=== PATIENT | male | born 1950 | race Caucasian/White ===

== ENCOUNTER → 2018-08-18 | Outpatient (CLI) | payer MEDICARE, OTHER | END | disposition home or self-care (01) | LOC: CFH 13:37 | PROVIDERS: ATTEND Internal Medicine Cardiovascular Disease | DX: I35.1 Nonrheumatic aortic (valve) insufficiency (principal); I25.10 Atherosclerotic heart disease of native coronary artery without angina pectoris; I25.2 Old myocardial infarction; I10 Essential (primary) hypertension; E78.5 Hyperlipidemia, unspecified; Z85.46 Personal history of malignant neoplasm of prostate; Z87.891 Personal history of nicotine dependence | CPT/HCPCS: 93306 ==

== ENCOUNTER → 2018-08-24 | Outpatient (CLI) | payer MEDICARE, OTHER | END | disposition home or self-care (01) | LOC: CARD 15:17 | PROVIDERS: ATTEND Family Medicine | DX: R06.02 Shortness of breath (principal) | CPT/HCPCS: 94060; 94726; 94729 ==

== ENCOUNTER 2018-09-18 09:38 | Day surgery (SDC) | payer MEDICARE ==
[~2018-09-18] VITALS: Ht 175.3 cm; Wt 98.9 kg
[~2018-09-18 09:38] MED LIST: ACETAMINOPHEN 325 MG TABLET PO PRN; ATOR40TA78 PO; CLOP75TA PO; KETOROLAC 30 MG/1 ML IV PRN; LABETALOL 5MG/ML, 20ML IV PRN; NITR0.4T SL; hydrALAzine 20 MG/ML, 1ML IV PRN
[2018-09-18 09:50] VITALS: BP 156/92
[2018-09-18] MEDS ORDERED: PROPOFOL 10 MG/ML, 20ML ONE (10:09)
== END 2018-09-18 11:50 | disposition home or self-care (01) ==
LOC: OUT 09:38
PROVIDERS: ATTEND Surgery
DX: K91.30 Postprocedural intestinal obstruction, unspecified as to partial versus complete (principal); K62.4 Stenosis of anus and rectum; K51.90 Ulcerative colitis, unspecified, without complications; I10 Essential (primary) hypertension; E78.5 Hyperlipidemia, unspecified; I25.10 Atherosclerotic heart disease of native coronary artery without angina pectoris; Z98.0 Intestinal bypass and anastomosis status; Z98.890 Other specified postprocedural states; Z85.46 Personal history of malignant neoplasm of prostate; Z91.018 Allergy to other foods; Z91.013 Allergy to seafood; Z95.5 Presence of coronary angioplasty implant and graft
CPT/HCPCS: 45330; 93005; J2704

== ENCOUNTER 2019-02-10 09:01 | Emergency (ER) | payer MEDICARE ==
[~2019-02-10] VITALS: Ht 175.3 cm; Wt 100.0 kg
[~2019-02-10 09:01] MED LIST changes: -ACETAMINOPHEN 325 MG TABLET PO PRN; -KETOROLAC 30 MG/1 ML IV PRN; -LABETALOL 5MG/ML, 20ML IV PRN; -hydrALAzine 20 MG/ML, 1ML IV PRN
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
[2019-02-10 10:18] LABS: BASOPHILS # (AUTO) 0.02 x10^3/uL (0-0.1); BASOPHILS % (AUTO) 0 % (0-1); EOSINOPHILS # (AUTO) 0.21 x10^3/uL (0-0.4); EOSINOPHILS % (AUTO) 4 % (1-7); LYMPHOCYTES # (AUTO) 1.24 x10^3/uL (1-3.4); LYMPHOCYTES % (AUTO) 23 % (22-44); MD NO; MEAN CORPUSCULAR HEMOGLOBIN 29.6 pg (27.5-34.5); MEAN CORPUSCULAR HGB CONC 33.4 g/dL (33.2-36.2); MEAN CORPUSCULAR VOLUME 88.7 fL (81-97); MEAN PLATELET VOLUME 8.5 fL (7.4-10.4); MONOCYTES # (AUTO) 0.32 x10^3/uL (0.2-0.8); MONOCYTES % (AUTO) 6 % (2-9); NEUTROPHILS % (AUTO) 68 % (42-75); PLATELET COUNT 214 x10^3/uL (130-400); RED BLOOD COUNT 4.63 x10^6/uL (4.38-5.82)
[2019-02-10 10:24] LABS: ALBUMIN 3.5 g/dL (3.4-5.0); ANION GAP 6 mmol/L (5-15); CALCIUM 8.5 mg/dL (8.5-10.1); CHLORIDE 113 mmol/L (98-107); CREATININE 0.95 mg/dL (0.7-1.3)
[2019-02-10 10:28] LABS: TROPONIN I < 0.015 ng/mL (0.000-0.045)
[2019-02-10 10:29] LABS: INTERNATIONAL NORMALIZED RATIO 0.98 (0.93-1.1); PROTHROMBIN TIME 10.3 Seconds (9.6-11.5)
[2019-02-10 10:59] VITALS: BP 122/74
== END 2019-02-10 11:02 | disposition home or self-care (01) ==
LOC: ED 10:45
DX: R07.89 Other chest pain (principal); I25.2 Old myocardial infarction; E78.5 Hyperlipidemia, unspecified; I25.10 Atherosclerotic heart disease of native coronary artery without angina pectoris
CPT/HCPCS: 36415; 71046; 80048; 82040; 84484; 85025; 85610; 85730; 93005; 99284

== ENCOUNTER 2020-03-21 09:18 | Emergency (ER) | payer MEDICARE ==
[~2020-03-21] VITALS: Ht 175.3 cm; Wt 97.0 kg
[~2020-03-21 09:18] MED LIST changes: -NITR0.4T SL; +NITR0.4T41 SL
[2020-03-21] MEDS ORDERED: KETOROLAC 30 MG/1 ML ONE (09:35)
[2020-03-21] MEDS ORDERED: METHOCARBAMOL 750 MG TABLET ONE (09:35)
[2020-03-21] MEDS ORDERED: HYDROcodone/APAP 5/325 TABLET ONE (09:35)
--- NOTE | 2020-03-21 09:44 | NUR ---
PT TO XR
[2020-03-21] MEDS ORDERED: KETOROLAC 30 MG/1 ML IM ONE (10:00)
[2020-03-21] MEDS ORDERED: METHOCARBAMOL 750 MG TABLET PO ONE (10:00)
[2020-03-21] MEDS ORDERED: HYDROcodone/APAP 5/325 TABLET PO ONE (10:00)
--- NOTE | 2020-03-21 10:04 | NUR ---
PT RETURNED FROM XR, SITTING UPRIGHT ON CHAIR FOR COMFORT, RESPONDS APPROP TO STAFF, PAIN "STARTING TO GET A LITTLE BETTER", COMFORT MEASURES PROVIDED, CALL LIGHT WITHIN REACH.
[2020-03-21] MEDS ORDERED: HYDROmorphone 1 MG/ML, 1ML INJ ONE (10:38)
[2020-03-21] MEDS ORDERED: SODIUM CHLORIDE 0.9% 1,000ML IVBOLUS ONE (11:00)
[2020-03-21] MEDS ORDERED: HYDROmorphone 2 MG/ML, 1ML IVPush PRN (11:00)
[2020-03-21 11:01] LABS: BASOPHILS # (AUTO) 0.01 x10^3/uL (0-0.1); BASOPHILS % (AUTO) 0 % (0-1); EOSINOPHILS # (AUTO) 0.21 x10^3/uL (0-0.4); EOSINOPHILS % (AUTO) 3 % (1-7); LYMPHOCYTES # (AUTO) 1.62 x10^3/uL (1-3.4); LYMPHOCYTES % (AUTO) 22 % (22-44); MD NO; MEAN CORPUSCULAR HEMOGLOBIN 30.9 pg (27.5-34.5); MEAN CORPUSCULAR HGB CONC 33.4 g/dL (33.2-36.2); MEAN CORPUSCULAR VOLUME 92.3 fL (81-97); MEAN PLATELET VOLUME 7.7 fL (7.4-10.4); MONOCYTES # (AUTO) 0.43 x10^3/uL (0.2-0.8); MONOCYTES % (AUTO) 6 % (2-9); NEUTROPHILS # (AUTO) 5.06 x10^3/uL (1.8-6.8); NEUTROPHILS % (AUTO) 69 % (42-75); PLATELET COUNT 244 x10^3/uL (130-400); RED CELL DISTRIBUTION WIDTH 14.2 % (9.4-14.8)
[2020-03-21 11:14] LABS: ALANINE AMINOTRANSFERASE 23 U/L (12-78); ALBUMIN 3.5 g/dL (3.4-5.0); ANION GAP 6 mmol/L (5-15); CALCIUM 8.8 mg/dL (8.5-10.1); CHLORIDE 111 mmol/L (98-107); CREATININE 1.23 mg/dL (0.7-1.3)
[2020-03-21 11:16] LABS: ALKALINE PHOSPHATASE 80 U/L (45-117); BILIRUBIN,TOTAL 0.8 mg/dL (0.2-1.0); TOTAL PROTEIN 7.3 g/dL (6.4-8.2)
[2020-03-21 11:35] LABS: MICROSCOPIC AUTO
--- NOTE | 2020-03-21 12:00 | NUR ---
PT ABLE TO LAY ON GURNEY AWAKE & MORE COMFORTABLY AFTER FLUIDS, RESPONDS APPROP TO STAFF, NAD, COMFORT MEASURES PROVIDED, CALL LIGHT WITHIN REACH.
--- NOTE | 2020-03-21 12:05 | NUR ---
PT TO CT
--- NOTE | 2020-03-21 12:23 | NUR ---
PT RETURNED FROM CT
[2020-03-21 13:05] VITALS: BP 128/72
--- NOTE | 2020-03-21 13:05 | NUR ---
PT CONTINUES TO LAY ON GURNEY AWAKE & COMFORTABLE, RESPONDS APPROP TO STAFF, NAD, COMFORT MEASURES PROVIDED, CALL LIGHT WITHIN REACH.
--- NOTE | 2020-03-21 13:38 | NUR ---
Patient given discharge instructions and Rx, they have confirmed that they understand the instructions. Patient ambulatory with steady gait.
== END 2020-03-21 13:47 | disposition home or self-care (01) ==
LOC: ED 10:21
DX: S39.012A Strain of muscle, fascia and tendon of lower back, initial encounter (principal); M54.32 Sciatica, left side; I11.9 Hypertensive heart disease without heart failure; I95.9 Hypotension, unspecified; X58.XXXA Exposure to other specified factors, initial encounter; Y93.89 Activity, other specified; Y92.89 Other specified places as the place of occurrence of the external cause; Y99.8 Other external cause status
CPT/HCPCS: 36415; 72110; 72131; 74177; 80053; 81001; 83690; 85025; 96360; 96361; 96372; 99285; J1885; J7030

== ENCOUNTER 2020-11-03 11:00 | Inpatient (IN) | payer MEDICARE ==
[~2020-11-03] VITALS: Ht 175.3 cm; Wt 91.5 kg
--- NOTE | 2020-11-03 11:31 | NUR ---
PT AMBULATORY TO ROOM 28 W/ C/O LUQ ABD PAIN AND BLOODY STOOL X 5 DAYS. PT STATES HE IS ON PLAVIX. PT RESTING ON GURNEY. NADN. MONITORS APPLIED. WARM BLANKET PROVIDED. VSS.
[2020-11-03] MEDS ORDERED: PANTOPRAZOLE 40 MG IV ONE (11:48)
[2020-11-03] MEDS ORDERED: PANTOPRAZOLE 40 MG IV IVPush ONE (12:00)
[2020-11-03] MEDS ORDERED: SODIUM CHLORIDE 0.9% 1,000 ML IV ONE (12:00)
[2020-11-03] MEDS ORDERED: SODIUM CHLORIDE FLUSH 10ML SYR IVF ONE (12:00)
[2020-11-03 12:29] LABS: BASOPHILS % (AUTO) 0 % (0-1); EOSINOPHILS % (AUTO) 4 % (1-7); LYMPHOCYTES % (AUTO) 17 % (22-44); MEAN CORPUSCULAR HEMOGLOBIN 30.4 pg (27.5-34.5); MEAN CORPUSCULAR HGB CONC 34.4 g/dL (33.2-36.2); MEAN PLATELET VOLUME 7.6 fL (7.4-10.4); MONOCYTES % (AUTO) 10 % (2-9); NEUTROPHILS % (AUTO) 69 % (42-75); PLATELET COUNT 353 x10^3/uL (130-400); RED BLOOD COUNT 5.05 x10^6/uL (4.38-5.82); RED CELL DISTRIBUTION WIDTH 13.3 % (9.4-14.8)
--- NOTE | 2020-11-03 12:29 | NUR ---
PIV INITIATED. PT MEDICATED PER DECSeven CALZADA. VSS.
[2020-11-03 12:31] LABS: MD NO
[2020-11-03 12:35] LABS: ALANINE AMINOTRANSFERASE 48 U/L (12-78); ALBUMIN 3.1 g/dL (3.4-5.0); ANION GAP 10 mmol/L (5-15); CALCIUM 9.1 mg/dL (8.5-10.1); CHLORIDE 107 mmol/L (98-107); CREATININE 1.24 mg/dL (0.7-1.3)
[2020-11-03 12:36] LABS: INTERNATIONAL NORMALIZED RATIO 1.08 (0.93-1.1); PROTHROMBIN TIME 11.5 Seconds (9.6-11.5)
[2020-11-03 12:37] LABS: ALKALINE PHOSPHATASE 75 U/L (45-117); BILIRUBIN,TOTAL 0.6 mg/dL (0.2-1.0); TOTAL PROTEIN 7.6 g/dL (6.4-8.2)
--- NOTE | 2020-11-03 13:20 | NUR ---
PT RESTING ON GURNEY. NADN. CARRANZA.
--- NOTE | 2020-11-03 13:26 | NUR ---
PT CHART REVIEWED AND PLACED FOR RECHECK.
[2020-11-03] MEDS ORDERED: ATEN25TA PO (14:03)
[2020-11-03] MEDS ORDERED: TRAZ-175 PO (14:03)
--- NOTE | 2020-11-03 14:03 | NUR ---
PT AWARE OF ADMISSION AND IS AGREEABLE TO THIS. PT RESTING ON GURNEY. NADN. CARRANZA.
[2020-11-03] MEDS ORDERED: methylPREDNISolone SOD SUCC 40 MG/ML ONE (14:48)
--- NOTE | 2020-11-03 14:55 | NUR ---
PT RESTING ON GURNEY. NADN. CARRANZA.
[2020-11-03] MEDS ORDERED: methylPREDNISolone SOD SUCC 40 MG/ML IV SCH ×2 (15:00)
[2020-11-03] MEDS ORDERED: PIPERACILLIN/TAZO/PMX 3.375GM 50 ML IV ONE (15:30)
[2020-11-03] MEDS ORDERED: PIPERACILLIN/TAZO/PMX 3.375GM 50 ML ONE (15:31)
--- NOTE | 2020-11-03 15:34 | NUR ---
REPORT GIVEN TO YOMAIRA, RECEIVING RN. ALL QUESTIONS ANSWERED. AWAITING PT TRANSPORT.
[2020-11-03] MEDS ORDERED: morphine SULFATE 10 MG/ML, 1ML IVPush PRN (16:00)
[2020-11-03] MEDS ORDERED: TRAZODONE 100MG TABLET PO PRN (16:00)
[2020-11-03] MEDS ORDERED: ACETAMINOPHEN 325 MG TABLET PO PRN (16:00)
[2020-11-03 16:17] VITALS: BP 116/75
[2020-11-03] MEDS: SODIUM CHLORIDE 0.9% 1,000 ML IV SCH (16:59)
[2020-11-03] MEDS ORDERED: GOLYTELY 4,000ML ORAL.SOL PO ONE (18:30)
[2020-11-03 19:47] VITALS: BP 119/74
[2020-11-03] MEDS: PIPERACILLIN/TAZO/PMX 3.375GM 50 ML IV SCH (21:12)
[2020-11-04] MEDS: PIPERACILLIN/TAZO/PMX 3.375GM 50 ML IV SCH ×2 (03:29→09:49)
[2020-11-04 05:15] VITALS: BP 131/77
[2020-11-04 05:40] LABS: BASOPHILS % (AUTO) 0 % (0-1); EOSINOPHILS % (AUTO) 0 % (1-7); LYMPHOCYTES % (AUTO) 11 % (22-44); MEAN CORPUSCULAR HEMOGLOBIN 30.6 pg (27.5-34.5); MEAN CORPUSCULAR HGB CONC 34.6 g/dL (33.2-36.2); MEAN PLATELET VOLUME 7.4 fL (7.4-10.4); MONOCYTES % (AUTO) 5 % (2-9); NEUTROPHILS % (AUTO) 84 % (42-75); PLATELET COUNT 369 x10^3/uL (130-400); RED BLOOD COUNT 4.94 x10^6/uL (4.38-5.82); RED CELL DISTRIBUTION WIDTH 13.9 % (9.4-14.8)
[2020-11-04 05:44] LABS: MD NO
[2020-11-04] MEDS: ATENOLOL 25 MG TABLET PO SCH (05:47)
[2020-11-04 05:54] LABS: CHLORIDE 107 mmol/L (98-107)
[2020-11-04 06:07] LABS: ANION GAP 11 mmol/L (5-15); CALCIUM 9.1 mg/dL (8.5-10.1); CREATININE 1.31 mg/dL (0.7-1.3)
[2020-11-04 07:01] VITALS: BP 113/69
[2020-11-04] MEDS: SODIUM CHLORIDE 0.9% 1,000 ML IV SCH (07:38)
[2020-11-04] MEDS: PANTOPRAZOLE 40 MG IV IVPush SCH (09:49)
[2020-11-04] MEDS ORDERED: PROPOFOL 10 MG/ML, 20ML ONE (10:46)
[2020-11-04] MEDS ORDERED: EPHEDRINE 50 MG/ML, 1ML ONE (10:46)
[2020-11-04 13:25] VITALS: BP 107/67
[2020-11-04] MEDS: CIPROFLOXACIN/PMX 400MG/200ML 200 ML IV SCH (13:40)
[2020-11-04] MEDS: METRONIDAZOLE PMX 500MG/100ML 100 ML IV SCH ×2 (14:51→21:54)
[2020-11-04 19:31] VITALS: BP 117/68
[2020-11-05] MEDS: SODIUM CHLORIDE 0.9% 1,000 ML IV SCH
[2020-11-05 00:10] VITALS: BP 110/67
[2020-11-05] MEDS: CIPROFLOXACIN/PMX 400MG/200ML 200 ML IV SCH ×2 (01:32→15:01)
[2020-11-05] MEDS: METRONIDAZOLE PMX 500MG/100ML 100 ML IV SCH ×2 (05:50→16:04)
[2020-11-05 07:05] VITALS: BP 117/68
[2020-11-05] MEDS: PANTOPRAZOLE 40 MG IV IVPush SCH (07:46)
[2020-11-05] MEDS: ATENOLOL 25 MG TABLET PO SCH (07:47)
[2020-11-05] MEDS ORDERED: LORazepam 1MG TABLET PO ONE (10:00)
[2020-11-05 13:01] VITALS: BP 113/64
[2020-11-05] MEDS ORDERED: CIPR500T4 PO (14:29)
[2020-11-05] MEDS ORDERED: METR500T PO (14:29)
[2020-11-05] MEDS ORDERED: OMEP40CA42 PO (14:29)
[2020-11-05] MEDS ORDERED: GADOTERATE 10 MMOL/20 ML VIAL ONE (14:51)
== END 2020-11-05 17:51 | disposition home or self-care (01) | DRG 394 ==
LOC: ED 13:33 → EDIP 13:57 → 3N 16:05
PROVIDERS: ADMIT Family Medicine; ATTEND Hospitalist
PROC: 0DBB8ZX Excision of Ileum, Via Natural or Artificial Opening Endoscopic, Diagnostic (ICD-10-PCS; principal; 2020-11-04 10:00)
DX: K91.850 Pouchitis (principal); K51.919 Ulcerative colitis, unspecified with unspecified complications; K61.1 Rectal abscess; K91.858 Other complications of intestinal pouch; Z20.822 Contact with and (suspected) exposure to COVID-19; I10 Essential (primary) hypertension; E78.5 Hyperlipidemia, unspecified; E88.09 Other disorders of plasma-protein metabolism, not elsewhere classified; I25.10 Atherosclerotic heart disease of native coronary artery without angina pectoris; K62.4 Stenosis of anus and rectum; I25.2 Old myocardial infarction; Z95.5 Presence of coronary angioplasty implant and graft; Z85.46 Personal history of malignant neoplasm of prostate; Z80.0 Family history of malignant neoplasm of digestive organs; Z79.899 Other long term (current) drug therapy; Z79.01 Long term (current) use of anticoagulants; Z91.018 Allergy to other foods; Z91.013 Allergy to seafood; Z87.891 Personal history of nicotine dependence
CPT/HCPCS: 36415; 72197; 74177; 80048; 80053; 85025; 85610; 85730; 86140; 86480; 87040; 87340; 87635; 88305; 96361; 96374; 96375; 99285; G0378; J0744; J2543; J2704; A9575; C9113; J2920; J7030

== ENCOUNTER 2020-12-15 08:28 | Outpatient (CLI) | payer MEDICARE ==
[~2020-12-15 08:28] MED LIST changes: +ATEN25TA PO; +CIPR500T4 PO; +METR500T PO; +OMEP40CA42 PO; +REGADENOSON 0.4 MG/5 ML SYRINGE ONE; +TRAZ-175 PO
== END 2020-12-15 23:59 | disposition home or self-care (01) ==
LOC: CFH 08:28
PROVIDERS: ATTEND Internal Medicine Cardiovascular Disease
DX: I21.09 ST elevation (STEMI) myocardial infarction involving other coronary artery of anterior wall (principal); I25.10 Atherosclerotic heart disease of native coronary artery without angina pectoris; R29.898 Other symptoms and signs involving the musculoskeletal system
CPT/HCPCS: 78452; 93017; A9502; J2785

== ENCOUNTER 2021-03-21 13:57 | Emergency (ER) | payer MEDICARE ==
[~2021-03-21] VITALS: Ht 175.3 cm; Wt 93.7 kg
[~2021-03-21 13:57] MED LIST changes: -OMEP40CA42 PO; +OMEP40CA8 PO; -REGADENOSON 0.4 MG/5 ML SYRINGE ONE
--- NOTE | 2021-03-21 17:34 | NUR ---
PT RESTING IN BED. PT STATES H/A AT 3/10 PAIN CURRENTLY. PT SEEN IN TRIAGE BY PROVIDER. PT OK FOR D/C PER ERMD, AWAITING D/C PAPERWORK.
--- NOTE | 2021-03-21 18:38 | NUR ---
PT D/C'D PER ORDERS. PT VERBALIZED UNDERSTANDING OF D/C INSTRUCTIONS. HAS ALL OWN BELONGINGS UPON D/C.
[2021-03-21 18:39] VITALS: BP 125/67
== END 2021-03-21 18:41 | disposition home or self-care (01) ==
LOC: ED 18:20
DX: G44.219 Episodic tension-type headache, not intractable (principal); I10 Essential (primary) hypertension; I25.2 Old myocardial infarction; I25.10 Atherosclerotic heart disease of native coronary artery without angina pectoris
CPT/HCPCS: 70450; 99284